=== PATIENT | female | born 1960 | race Caucasian/White ===

== ENCOUNTER → 2017-11-03 | Emergency (ER) | payer OTHER ==
[~2017-11-03] VITALS: Ht 154.9 cm; Wt 74.8 kg
[~2017-11-03] MED LIST: CELECOXIB200 MG PO; PERCOCET 5-3251 EACH PO; TAMS0.4C PO
== END | disposition home or self-care (01) ==
LOC: ER 21:35
DX: R10.31 Right lower quadrant pain (principal); N20.1 Calculus of ureter